=== PATIENT | male | born 1950 | race Caucasian/White ===

== ENCOUNTER 2016-10-27 17:54 | Emergency (ER) | payer OTHER | END 2016-10-27 19:19 | disposition home or self-care (01) | LOC: FER 17:54 | DX: S61.217A Laceration without foreign body of left little finger without damage to nail, initial encounter (principal); Z23 Encounter for immunization; W27.0XXA Contact with workbench tool, initial encounter; Y92.009 Unspecified place in unspecified non-institutional (private) residence as the place of occurrence of the external cause | CPT/HCPCS: 90471; 90715 ==

== ENCOUNTER 2020-02-22 15:49 | Emergency (ER) | payer MEDICARE, OTHER ==
[2020-02-23] MEDS ORDERED: SERTRALINE HCL25 MG PO (09:40)
[2020-02-23] MEDS ORDERED: LOSARTAN POTASS25 MG PO (09:41)
[2020-02-23] MEDS ORDERED: DICLOFENAC SODI75 MG PO (09:42)
[2020-02-23] MEDS ORDERED: ACETAMINOPHEN500 M1 PO (09:42)
[2020-02-23] MEDS ORDERED: LOVAZA1 GM PO (09:43)
[2020-02-23] MEDS ORDERED: IBUPROFEN800 MG PO (09:43)
[2020-02-23] MEDS ORDERED: ASPIRIN EC81 MG PO (09:43)
[2020-02-23] MEDS ORDERED: VITAMIN B COMP1 EACH PO (09:44)
[2020-02-23] MEDS ORDERED: VITAMIN D3 PO (09:45)
[2020-02-24] MEDS ORDERED: ASCORBIC ACID500 MG PO (06:27)
[2020-02-24] MEDS ORDERED: PERCOCET 5-3251 EACH PO (06:43)
[2020-02-24] MEDS ORDERED: IBUPROFEN800 MG PO (07:29)
[2020-02-24] MEDS ORDERED: PHENERGAN25 M1 PO (07:33)
== END 2020-02-22 19:24 | disposition home or self-care (01) ==
LOC: FER 15:49
DX: S82.851A Displaced trimalleolar fracture of right lower leg, initial encounter for closed fracture (principal); I10 Essential (primary) hypertension; F41.9 Anxiety disorder, unspecified; F32.9 Major depressive disorder, single episode, unspecified; W19.XXXA Unspecified fall, initial encounter; Y92.009 Unspecified place in unspecified non-institutional (private) residence as the place of occurrence of the external cause; Z79.899 Other long term (current) drug therapy; Z20.822 Contact with and (suspected) exposure to COVID-19
CPT/HCPCS: 73590; 73600; 73610; 96374; 96375; J1170; J2405; U0002

== ENCOUNTER → 2020-02-24 | Day surgery (SDC) | payer MEDICARE, OTHER ==
[~2020-02-24] MED LIST: ACETAMINOPHEN500 M1 PO; ASCORBIC ACID500 MG PO; ASPIRIN EC81 MG PO; DICLOFENAC SODI75 MG PO; IBUPROFEN800 MG PO; LOSARTAN POTASS25 MG PO; LOVAZA1 GM PO; PERCOCET 5-3251 EACH PO; PHENERGAN25 M1 PO; SERTRALINE HCL25 MG PO; VITAMIN B COMP1 EACH PO; VITAMIN D3 PO
[2020-02-24 06:47] LABS: HCT 40.7 % (42.0-52.0); HGB 13.8 g/dl (13.2-18.0); MCH 30.5 pg (25.0-31.0); MCHC 33.9 g/dL (32.0-36.0); MPV 9.4 fL (6.0-9.5); RBC 4.52 M/uL (4.70-6.00); RDW 12.1 % (11.5-14.0); WBC 6.5 K/uL (4.0-10.5)
[2020-02-24 07:04] LABS: ALBUMIN 3.5 g/dL (3.4-5.0); BILIRUBIN - TOTAL 0.5 mg/dL (0.2-1.0); BUN/CREAT RATIO (CALC) 18.1 RATIO; CREATININE 0.83 mg/dL (0.67-1.17); GLOBULIN (CALCULATION) 3.8 g/dL; POTASSIUM 4.1 mmol/L (3.5-5.1); TOTAL PROTEIN 7.3 g/dL (6.4-8.2)
== END | disposition home or self-care (01) ==
LOC: FAS 06:08
PROVIDERS: Orthopaedic Surgery
DX: S82.841A Displaced bimalleolar fracture of right lower leg, initial encounter for closed fracture (principal); I10 Essential (primary) hypertension; F41.9 Anxiety disorder, unspecified; K57.90 Diverticulosis of intestine, part unspecified, without perforation or abscess without bleeding; K63.5 Polyp of colon; C43.4 Malignant melanoma of scalp and neck; F17.220 Nicotine dependence, chewing tobacco, uncomplicated; Z20.828 Contact with and (suspected) exposure to other viral communicable diseases
CPT/HCPCS: 36415; 71045; 73600; 76000; 80053; 93005; C1713; C1769; J0690; J0735; J1100; J1885; J2250; J2405; J2704; J2795; J3010; J7120